=== PATIENT | female | born 1995 | race Caucasian/White ===

== ENCOUNTER 2018-04-27 13:08 | Emergency (ER) | payer BC ==
[2018-04-27 13:18] VITALS: BP 133/85
--- NOTE | 2018-04-27 14:12 | EDPHY ---
H & P Stated Complaint: R ankle inj Time Seen by Provider: 04/27/18 14:11 HPI/ROS: HPI: This is a 22-year-old female who presents with Chief Complaint: Right ankle injury Location: Base of 5th toe Quality: Injury Duration: Yesterday evening Signs and Symptoms: No bleeding, no radiation, no numbness, no weakness, no tingling, no incontinence, no decreased range of motion, no swelling, + pain, no fever Timing: Acute Severity: [id number] Context: Patient was swing dancing wearing 1 in heels yesterday evening when he she chava it her right ankle. She reports that she felt mild, constant, nonradiating pain. She applied ice and took ibuprofen. She woke up this morning with pain at the base of her 5th toe that is nonradiating in nature. 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 She reports that she is ambulatory with only mild discomfort. Denies any radiation, weakness, skin color changes. Modifying Factors: See above Comment: ROS: A comprehensive 10 system review of systems is otherwise negative aside from elements mentioned in the history of present illness. MEDICAL/SURGICAL/SOCIAL HISTORY: Medical history: Generally healthy. Does not take any regular medications. LMP 2-3 weeks ago. Surgical history: Denies Social history: Never smoked. CONSTITUTIONAL: Polite and cooperative physically fit young adult white female , awake and alert, no obvious distress HEENT: Atraumatic and normocephalic. NECK: supple EXTREMITIES: 2/2 pulses, strength 5/5, right Ankle: Plantar flexion to 50, dorsiflexion to 20. Foot inversion to 35 degree. No tenderness/swelling Anterior talofibular ligament. No tenderness/swelling Calcaneofibular ligament , no tenderness/swelling posterior talofibular ligament, no tenderness/swelling posterior inferior tibiofibular ligament. Achilles tendon intact. Base of right 5th toe is mildly tender but no ecchymosis, step-off. DIP/PIP/MCP flexion /extension intact with good light touch sensation. no deformities, no clubbing, no cyanosis or edema. NEUROLOGICAL: no focal neuro deficits. GCS 15. Light touch sensation intact. SKIN: Warm and dry, no erythema. no rash. Good capillary refill. Source: Patient Exam Limitations: No limitations - Personal History LMP (Females 10-55): 15-21 Days Ago Current Tetanus Diphtheria and Acellular Pertussis (TDAP): Yes - Medical/Surgical History Hx Asthma: No Hx Chronic Respiratory Disease: No Hx Diabetes: No Hx Cardiac Disease: No Hx Renal Disease: No Hx Cirrhosis: No Hx Alcoholism: No Hx HIV/AIDS: No Hx Splenectomy or Spleen Trauma: No - Social History Smoking Status: Never smoked Constitutional: Initial Vital Signs Temperature (C) 36.9 C 04/27/18 13:14 Heart Rate 55 L 04/27/18 13:14 Respiratory Rate 16 04/27/18 13:14 Blood Pressure 133/85 H 04/27/18 13:14 O2 Sat (%) 96 04/27/18 13:14 O2 Delivery Mode Room Air O2 (L/minute) 98 Allergies/Adverse Reactions: nickel Allergy (Verified 04/27/18 13:18) Medical Decision Making ED Course/Re-evaluation: Vital signs reviewed and stable upon arrival. Ankle x-ray my read shows no fracture at the base of the 5th toe. Old navicular fracture noted. Offered walking boot or Velcro ankle stirrup splint and patient politely declined. Given crutches, supportive care No signs of neurovascular compromise/tenting of skin/compartment syndrome/ extremities and joints examined above and below area of concern and are neurovascularly intact. This patient was seen under the supervision of my secondary supervising physician. I evaluated care for this patient independently. Discussed this patient with Dr. Delgado. Differential Diagnosis: Ankle injury differential diagnosis includes but is not limited to tibia fracture, fibula fracture, metatarsal fracture, LisFranc fracture, achilles tendon rupture, sprain. Departure - Departure Disposition: Home, Routine, Self-Care Clinical Impression: Sprain of left foot Qualifiers: Encounter type: initial encounter Qualified Code(s): S93.602A - Unspecified sprain of left foot, initial encounter Condition: Good Instructions: Crutch Instructions (ED), Foot Sprain (ED) Additional Instructions: Use crutches to aid in ambulation. Start with toe-touch weight-bearing status and slowly advance as tolerated. Take Tylenol 650 mg every 4 hours and/or Ibuprofen 600 mg every 8 hours with food as needed for pain. Apply ice for 30 minutes at a time; 2-3 times per day for the next 1-2 days. Follow up with Orthopedics in 7-10 days if symptoms persist at which time they will evaluate and recommend with you if conservative management versus further imaging is indicated. The x-rays obtained in the emergency department today demonstrate no evidence of an obvious fracture. Sometimes fractures are not obvious on the initial set of x-rays performed in the ED. For this reason, you should have repeat x-rays performed in 7-10 days if you are having any pain exclude the possibility of an occult fracture. Referrals: Eleuterio Cohn MD [Medical Doctor] - As per Instructions
== END 2018-04-27 14:35 | disposition home or self-care (01) ==
DX: S93.601A Unspecified sprain of right foot, initial encounter (principal); Z87.81 Personal history of (healed) traumatic fracture; X50.9XXA Other and unspecified overexertion or strenuous movements or postures, initial encounter; Y93.41 Activity, dancing